=== PATIENT | female | born 1975 | race American Indian/Alaskan Native ===

== ENCOUNTER 2017-04-28 10:14 | Emergency (ER) | payer MEDICAID, OTHER ==
[2017-04-28 10:19] VITALS: BP 146/90; PULSE 60; RESP 18; TEMP 98.2; O2SAT 99
[2017-04-28] MEDS ORDERED: Naproxen 550 mg Tab PO STA (10:30)
[2017-04-28] MEDS ORDERED: Naproxen 550 mg Tab PO ONE (10:39)
--- NOTE | 2017-04-28 11:20 | C.PDOC ---
History Of Present Illness 41 y/o female presents to the ER complaining of right ankle pain which began yesterday. Patient states that the pain began after she slipped on ice while going down the stairs and twisted her right ankle. Patient reports that she took Motrin which provided mild relief. Patient denies any other injuries. Time Seen by Provider: 04/28/17 10:22 Chief Complaint (Nursing): Lower Extremity Problem/Injury History Per: Patient History/Exam Limitations: no limitations Onset/Duration Of Symptoms: Days Current Symptoms Are (Timing): Still Present Severity: Moderate - Ankle/Foot Description Of Injury: Twisted (right ankle) Past Medical History Reviewed: Historical Data, Nursing Documentation, Vital Signs Vital Signs: Last Vital Signs Temp 98.2 F 04/28/17 10:16 Pulse 60 04/28/17 10:16 Resp 18 04/28/17 10:16 BP 146/90 04/28/17 10:16 Pulse Ox 99 04/28/17 11:45 - Medical History PMH: No Chronic Diseases Surgical History: No Surg Hx Family History: States: No Known Family Hx - Social History Hx Alcohol Use: Yes Hx Substance Use: No - Immunization History Hx Tetanus Toxoid Vaccination: No Hx Influenza Vaccination: No Hx Pneumococcal Vaccination: No Review Of Systems Except As Marked, All Systems Reviewed And Found Negative. Musculoskeletal: Positive for: Other (right ankle pain) Neurological: Negative for: Weakness, Numbness Physical Exam - Physical Exam Appears: Non-toxic, No Acute Distress, Other (comfortable) Skin: Normal Color, Warm Head: Atraumatic, Normacephalic Eye(s): bilateral: Normal Inspection, PERRL Nose: Normal Oral Mucosa: Moist Neck: Supple Chest: Symmetrical Cardiovascular: Rhythm Regular Respiratory: Normal Breath Sounds, No Accessory Muscle Use Extremity: Normal ROM, Tenderness (tenderness to palpation at the right lateral malleolus in right ankle), No Deformity (right ankle), No Swelling (right ankle) Pulses: Left Dorsalis Pedis: Normal, Right Dorsalis Pedis: Normal Neurological/Psych: Oriented x3, Normal Speech, Normal Cognition, Normal Motor, Normal Sensation ED Course And Treatment O2 Sat by Pulse Oximetry: 99 (RA) Pulse Ox Interpretation: Normal Progress Note: X-Ray of right ankle ordered. Patient given Naproxen. Disposition Counseled Patient/Family Regarding: Studies Performed, Diagnosis, Need For Followup, Rx Given - Disposition Referrals: Paul Bob Jr., MD [Medical Doctor] - [facility] [Outside] Douglas Rg III, MD [Staff Provider] - Disposition: HOME/ ROUTINE Disposition Time: 11:45 Condition: STABLE Additional Instructions: FOLLOW UP WITH ORTHOPEDICS/PODIATRY WITHIN 1 WEEK USE MEDICATIONS NEEDED RETURN TO EMERGENCY ROOM IF SYMPTOMS WORSEN Prescriptions: Naproxen 375 mg PO BID PRN #20 tablet PRN Reason: pain Instructions: Ankle Sprain (ED), Crutch Instructions (ED), Ankle Stirrup Splint (ED) Forms: [employer] (Wolof) Print Language: MACEDONIAN - POA Present On Arrival: Falls Or Trauma - Clinical Impression Clinical Impression: Right ankle sprain - Scribe Statement The provider has reviewed the documentation as recorded by the Rios Gold Provider Attestation: All medical record entries made by the Delvinibelin were at my direction and personally dictated by me. I have reviewed the chart and agree that the record accurately reflects my personal performance of the history, physical exam, medical decision making, and the department course for this patient. I have also personally directed, reviewed, and agree with the discharge instructions and disposition.
--- NOTE | 2017-04-28 11:54 | RAD ---
PROCEDURE: Right Ankle Radiographs. HISTORY: RIGHT ANKLE PAIN R/O FX COMPARISON: None FINDINGS: BONES: Normal. No fracture. JOINTS: Normal. No osteoarthritis. Ankle mortise maintained. Talar dome intact SOFT TISSUES: Normal. OTHER FINDINGS: None. IMPRESSION: Normal right ankle radiographs. Concordant results with the preliminary interpretation rendered by the emergency department physician procedure.
== END 2017-04-28 12:34 | disposition home or self-care (01) ==
LOC: C.ER 10:14
DX: S93.401A Sprain of unspecified ligament of right ankle, initial encounter (principal); W10.9XXA Fall (on) (from) unspecified stairs and steps, initial encounter
CPT/HCPCS: 73610; 97161; 97530; 99285; G8978; G8979; G8980